=== PATIENT | female | born 2000 | race Caucasian/White ===

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

== ENCOUNTER 2019-05-30 16:36 | Emergency (ER) | payer OTHER ==
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
[2019-05-30 16:48] VITALS: BMI 29.0
[2019-05-30] MEDS ORDERED: METHOCARBAMOL 500 MG TABLET PO ONE (17:27)
[2019-05-30] MEDS ORDERED: NAPROXEN 500 MG TABLET (FP) PO ONE (17:27)
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
[2019-05-30] MEDS ORDERED: NAPROXEN 500 MG TABLET (FP) ONE (17:36)
[2019-05-30] MEDS ORDERED: METHOCARBAMOL 500 MG TABLET ONE (17:37)
[2019-05-30 19:54] VITALS: BP 123/64; PULSE 82; TEMP 98.9
== END 2019-05-30 19:54 | disposition home or self-care (01) ==
LOC: JERFT 16:36
DX: O99.89 Other specified diseases and conditions complicating pregnancy, childbirth and the puerperium (principal); S30.1XXA Contusion of abdominal wall, initial encounter; S30.811A Abrasion of abdominal wall, initial encounter; M25.551 Pain in right hip; M79.651 Pain in right thigh; M25.572 Pain in left ankle and joints of left foot; V47.6XXA Car passenger injured in collision with fixed or stationary object in traffic accident, initial encounter; Y92.414 Local residential or business street as the place of occurrence of the external cause; Y93.89 Activity, other specified; Y99.8 Other external cause status; Z3A.01 Less than 8 weeks gestation of pregnancy
CPT/HCPCS: 36415; 76817-TC; 84702; 84703; 86850; 86900; 86901; 99282-25

== ENCOUNTER 2020-01-09 23:00 | Inpatient (IN) | payer OTHER ==
[2020-01-09] MEDS ORDERED: BUTORPHANOL TARTRATE 1 MG/ML VIAL IVPUSH ONE (23:43)
[2020-01-09] MEDS ORDERED: PROMETHAZINE HCL 25 MG/1 ML VIAL IVPUSH ONE (23:43)
[2020-01-09] MEDS ORDERED: DEXTROSE 5%-LACTATED RINGERS 1,000 ML IV SCH (23:45)
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
[2020-01-09] MEDS ORDERED: BUTORPHANOL TARTRATE 1 MG/ML VIAL ONE ×2 (23:57)
[2020-01-09] MEDS ORDERED: PROMETHAZINE HCL 25 MG/1 ML VIAL ONE (23:57)
[2020-01-10 00:05] LABS: BASO % 0.2 % (0-2.0); HEMATOCRIT 38.6 % (32.4-45.2); HEMOGLOBIN 13.2 GM/dL (10.7-15.3); LYMPH % 8.3 % (8-40); MCH 29.6 pg (25.7-33.7); MCHC 34.2 g/dl (32.0-36.0); MEAN CELL VOLUME 86.7 fl (80-96); MEAN PLT VOLUME 10.1 fl (7.5-11.1); MONO % 6.7 % (3.8-10.2); NEUT % 84.8 % (42.8-82.8); PLATELET COUNT 175 K/MM3 (134-434); RBC 4.45 M/mm3 (3.60-5.2); RDW 13.1 % (11.6-15.6); WHITE BLOOD COUNT 19.5 K/mm3 (4.0-10.0)
--- NOTE | 2020-01-10 00:06 | PN ---
Progress Note (short form) - Note Progress Note: cx 5 cm 80 vx -1, fhr cat 1, scalp electrode applied ,moving unable to monitor fh wants pain meds, option discussed Problem List - Problems (1) with 39 completed weeks gestation Code(s): Z3A.39 - 39 WEEKS GESTATION OF (2) Labor established Code(s): [id number] -
[2020-01-10 00:13] LABS: INR 0.95 (0.83-1.09); PROTHROMBIN TIME (PATIENT) 11.2 SEC (9.7-13.0)
[2020-01-10 00:16] LABS: ACTIVATED PTT 26.9 SECONDS (25.2-36.5)
[2020-01-10 00:29] LABS: BLOOD UREA NITROGEN 7.1 mg/dL (7-18); CALCIUM 8.7 mg/dL (8.5-10.1); CREATININE 0.6 mg/dL (0.55-1.3); POTASSIUM 4.1 mmol/L (3.5-5.1)
[2020-01-10 00:53] VITALS: BMI 40.6
[2020-01-10] MEDS ORDERED: OXYTOCIN 20 UNITS in 0.9% NS 20 UNIT/1,000 ML INFUS.BAG IV ONE (01:04)
[2020-01-10] MEDS ORDERED: morphine SULFATE/PF 0.5 MG/ML (2cc Syringe - QUVA) ONE (01:05)
[2020-01-10] MEDS ORDERED: ePHEDrine SULFATE 50 MG/1 ML AMPULE ONE (01:05)
--- NOTE | 2020-01-10 01:06 | PN ---
Progress Note (short form) - Note Progress Note: cx 5 cm 80 vx -1 fhr cardiac arrhythmia, can not access well being , advised c/s Problem List - Problems (1) with 39 completed weeks gestation Code(s): Z3A.39 - 39 WEEKS GESTATION OF (2) Labor established Code(s): [id number] -
[2020-01-10] MEDS ORDERED: ceFAZolin SODIUM 1 GM VIAL ONE (01:17)
[2020-01-10] MEDS ORDERED: MIDAZOLAM HCL 2 MG/2 ML SINGLE DOSE VIAL ONE (01:57)
[2020-01-10] MEDS ORDERED: diphenhydrAMINE HCL 25 MG CAPSULE (FP) PO PRN (02:31)
[2020-01-10] MEDS ORDERED: WITCH HAZEL 50% (TUCKS) 40 PAD/JAR PAD TP PRN (02:31)
[2020-01-10] MEDS ORDERED: oxyCODONE HCL 5 MG TABLET PO PRN ×2 (02:31)
[2020-01-10] MEDS ORDERED: IBUPROFEN 800 MG/8 ML IJ IVPB PRN (02:31)
[2020-01-10] MEDS ORDERED: METHYLERGONOVINE MALEATE 0.2 MG/1 ML AMP IM PRN (02:31)
[2020-01-10] MEDS ORDERED: BENZOCAINE 28 GM HEMORRHOIDAL OINTMENT PR PRN (02:31)
[2020-01-10] MEDS ORDERED: BENZOCAINE 20% 57 GM BOTTLE TP PRN (02:31)
--- NOTE | 2020-01-10 02:38 | OP ---
Operative Note - Note: Operative Date: 01/10/20 Pre-Operative Diagnosis: non reassuring FHR, heart arrythemia Operation: primary lst c/s Findings: live baby boy 9/9. op. clear fluid Surgeon: Nader Perrin Crm Analyst: Elliot Castro Anesthesia: Spinal Specimens Removed: placenta Estimated Blood Loss (mls): 700 Drains & Tubes with Location: [facility] Blood Volume Replaced (mls): 0 Operative Report Dictated: Yes
[2020-01-10] MEDS ORDERED: OXYTOCIN 20 UNITS in 0.9% NS 20 UNIT/1,000 ML INFUS.BAG IV SCH (02:45)
[2020-01-10] MEDS ORDERED: ONDANSETRON 4 MG/2 ML VIAL IVPUSH PRN (02:56)
[2020-01-10 05:30] LABS: CORD BASE EXCESS -4.7 mmol/L (0-2); CORD HCO3 22.3 mmHg (20-29); CORD PCO2 47.8 mmHg (30-78); CORD pH 7.286 (7.14-7.44)
[2020-01-10 05:33] LABS: CORD BASE EXCESS -4.7 mmol/L (0-2); CORD HCO3 23.7 mmHg (20-29); CORD PCO2 58.3 mmHg (30-78); CORD pH 7.227 (7.14-7.44)
[2020-01-10] MEDS: CEFAZOLIN 1 GM/D5W 1 GM/50 ML BAG IVPB SCH ×2 (09:49→17:33)
[2020-01-10] MEDS: DEXTROSE 5%-LACTATED RINGERS 1,000 ML IV SCH (09:54)
--- NOTE | 2020-01-10 19:51 | OP ---
DATE OF OPERATION: 01/10/2020 PREOPERATIVE DIAGNOSIS: 40 weeks labor, nonreassuring heart rate, arrhythmia. POSTOPERATIVE DIAGNOSIS: 40 weeks labor, nonreassuring heart rate, arrhythmia. PROCEDURE: Primary low segment transverse section. SURGEON: Ana Luisa Parham MD. CYLINDER BLOCK HOLE RELINER: HUBERT Mendez. ANESTHESIA: Spinal. ANESTHESIOLOGIST: Shaista Ly DO. ESTIMATED BLOOD LOSS: 700 mL. OPERATION: Patient was taken to operating room with adequate spinal anesthesia. Abdomen and perineum were prepped and draped. Pfannenstiel abdominal skin incision was made. Abdominal wall was cut layer by layer until the peritoneum was exposed and incised. Upon entering the abdominal cavity, the lower uterine segment was identified, and uterovesical fold of the peritoneum was established. The bladder was pushed down. A low transverse uterine incision was made. The incision extended laterally with bandage scissors. Amniotic sac was entered. Clear fluid. Head delivered. for occiput posterior position. Nasopharynx was suctioned. A live baby was delivered without any difficulty. Placenta was delivered manually. Uterine cavity was cleared of all remaining tissue. Uterine incision was closed in 2 layers, the 1st layer with 0 Biosyn continuous suture, the 2nd layer with 0 Biosyn imbricating the 1st layer. Bladder flap was closed with 0 Biosyn continuous suture. Both tubes and ovaries were checked and were normal. No active bleeding was seen. All the lap, sponge, and instrument counts were correct. Peritoneum was closed with 0 Biosyn continuous suture. Muscles were brought together interrupted suture with 0 Biosyn. Fascia was closed with 0 Biosyn continuous sutures. Subcutaneous fat interrupted sutures 0 Biosyn, and the skin was closed with carla. The patient tolerated the procedure well and left the OR in good condition. ANA LUISA PARHAM M.D. [id number]
[2020-01-11] MEDS ORDERED: BISACODYL 10 MG SUPP.RECT PR PRN (02:31)
[2020-01-11] MEDS: SIMETHICONE 80 MG TAB.CHEW (FP) PO PRN ×2 (06:09→21:40)
[2020-01-11] MEDS: ACETAMINOPHEN 325 MG TABLET (FP) PO PRN ×2 (06:10→21:39)
[2020-01-11] MEDS: IBUPROFEN 600 MG TABLET (FP) PO PRN ×2 (06:11→21:39)
[2020-01-11 08:24] LABS: BASO % 0.1 % (0-2.0); EOS % 0.1 % (0-4.5); HEMATOCRIT 37.1 % (32.4-45.2); HEMOGLOBIN 12.6 GM/dL (10.7-15.3); LYMPH % 10.3 % (8-40); MCH 29.9 pg (25.7-33.7); MCHC 34.1 g/dl (32.0-36.0); MEAN CELL VOLUME 87.8 fl (80-96); MEAN PLT VOLUME 10.1 fl (7.5-11.1); MONO % 5.1 % (3.8-10.2); NEUT % 84.4 % (42.8-82.8); PLATELET COUNT 196 K/MM3 (134-434); RBC 4.22 M/mm3 (3.60-5.2); RDW 13.6 % (11.6-15.6); WHITE BLOOD COUNT 17.3 K/mm3 (4.0-10.0)
--- NOTE | 2020-01-11 11:16 | PN ---
Post Progress Note - Subjective Subjective: Ambulating, tolerating PO, lochia decreased, paasing flatus, voidng Post Day: 1 Type of Delivery: Primary C/S Vital Signs: Vital Signs Temperature 99.3 F 01/10/20 22:00 Pulse Rate 108 H 01/10/20 22:00 Respiratory Rate 18 01/11/20 00:00 Blood Pressure 124/79 01/10/20 22:00 O2 Sat by Pulse Oximetry (%) 98 01/10/20 03:45 Uterus: Yes: Fundus Firm Incision: Yes: Dressing dry and intact Abdomen/GI: Yes: Abdomen soft Lochia, amount: Moderate Extremities: Yes: Calves non-tender Perineum: Yes: Intact Activity: Ambulating - Labs Labs: CBC WBC 17.3 K/mm3 (4.0-10.0) H 01/11/20 07:15 RBC 4.22 M/mm3 (3.60-5.2) 01/11/20 07:15 Hgb 12.6 GM/dL (10.7-15.3) 01/11/20 07:15 Hct 37.1 % (32.4-45.2) 01/11/20 07:15 MCV 87.8 fl (80-96) 01/11/20 07:15 MCH 29.9 pg (25.7-33.7) 01/11/20 07:15 MCHC 34.1 g/dl (32.0-36.0) 01/11/20 07:15 RDW 13.6 % (11.6-15.6) 01/11/20 07:15 Plt Count 196 K/MM3 (134-434) 01/11/20 07:15 MPV 10.1 fl (7.5-11.1) 01/11/20 07:15 Absolute Neuts (auto) 14.6 K/mm3 (1.5-8.0) H 01/11/20 07:15 Neutrophils % 84.4 % (42.8-82.8) H 01/11/20 07:15 Lymphocytes % 10.3 % (8-40) D 01/11/20 07:15 Monocytes % 5.1 % (3.8-10.2) 01/11/20 07:15 Eosinophils % 0.1 % (0-4.5) D 01/11/20 07:15 Basophils % 0.1 % (0-2.0) 01/11/20 07:15 Nucleated RBC % 0 % (0-0) 01/11/20 07:15 Assessment/Plan POD # 1 in stable condition and pp/postop precautions discussed. Patient expressed desire for circumcision -COntinue pp/post-op care -Anticipate D/C home on POD # 2-3
[2020-01-12] MEDS: DEXTROSE 5%-LACTATED RINGERS 1,000 ML IV SCH (00:27)
[2020-01-12 09:05] VITALS: BP 123/85; PULSE 96; TEMP 98.5
--- NOTE | 2020-01-12 11:00 | DS ---
Physical Examination Vital Signs: Vital Signs Temperature 98.5 F 01/12/20 09:03 Pulse Rate 96 H 01/12/20 09:03 Respiratory Rate 01/12/20 09:03 Blood Pressure 123/85 01/12/20 09:03 O2 Sat by Pulse Oximetry (%) 98 01/10/20 03:45 Findings/Remarks: Ambulating, tolerating PO, passing flatus, lochia decreased, voiding, desiring to go home. PP/post-op precautions discussed. Desires 's circumcision and its risks and complications explained. Informed consent obtained and all questions answered. Constitutional: Yes: Well Nourished, No Distress HENT: Yes: Atraumatic Neck: Yes: Supple Cardiovascular: Yes: Regular Rate and Rhythm Respiratory: Yes: Regular Gastrointestinal: Yes: Normal Bowel Sounds, Soft ...Rectal Exam: Yes: Other Renal/: Yes: Other Breast(s): Yes: Other Musculoskeletal: Yes: Other Extremities: Yes: Other Edema: Yes Edema: LLE: Trace, RLE: Trace Integumentary: Yes: WNL Wound/Incision: Yes: Clean/Dry, Well Approximated, Carla Intact Neurological: Yes: WNL, Alert, Oriented ...Motor Strength: WNL Psychiatric: Yes: Alert, Oriented Labs: CBC, BMP 01/11/20 07:15 01/09/20 23:30 Discharge Summary Problems reviewed: Yes Reason For Visit: LABOR Current Active Problems Labor established (Acute) with 39 completed weeks gestation (Acute) Procedures: Principal: [facility] Hospital Course: uncomplicated recovery Plan of Treatment: follow up within a week for incision check Condition: Stable - Instructions Diet, Activity, Other Instructions: Regular Diet as tolerated, avoid strenuous activity. Follow up within a week for incision check and carla removal. Call MD with any questions or concerns Referrals: Nader Perrin MD [Staff Physician] - Disposition: HOME - Home Medications Comprehensive Discharge Medication List: Ambulatory Orders Ferrous Sulfate [Iron] 1 tab PO DAILY 01/09/20 Pnv 29-1 Tablet 1 tab PO DAILY 01/09/20 Acetaminophen [Tylenol] 325 mg PO Q6H PRN #30 capsule MDD 5 01/12/20 Ibuprofen 600 mg PO Q6H PRN #30 tablet 01/12/20 Oxycodone HCl 5 mg PO Q6H PRN 3 Days #12 tablet MDD 5 01/12/20
[2020-01-12] MEDS ORDERED: SENNOSIDES/DOCUSATE COMBO (SENNA PLUS) TABLET (UD) PO PRN (22:00)
--- NOTE | 2020-01-15 17:58 | PATH ---
Surgical Pathology Report Patient Name: JOHANA THAYER Med. Rec. #: [id number] /Age/Gender: 2000 (Age: 19) / F Account: [id number] Location: [facility] OBS/PAYABLE PROCESSOR Taken: 01/10/2020 Received: 01/10/2020 Reported: 01/15/2020 Physicians: aNder Perrin M.D. Specimen(s) Received PLACENTA Clinical History , 40.2 weeks gestation, 1-induced Final Diagnosis PLACENTA: THIRD TRIMESTER PLACENTA WITH INCREASED SYNCYTIAL KNOTS, INTERVILLOUS AND PERIVILLOUS FIBRIN DEPOSITION. TRIVASCULAR CORD WITH ACUTE FUNISITIS. MEMBRANES WITH MARKED ACUTE CHORIOAMNIONITIS. Electronically Signed Lo Aragon M.D. Gross Description The specimen is received fresh labeled placenta and is a 482 gram, 17.0 x 17.0 x 3.0 cm. placenta with attached membranes and umbilical cord. The attached membranes are dykes, translucent with focal opacities and insert marginally. The umbilical cord measures 20 cm. in length and averages 1.3 cm. in diameter. The cord inserts centrally. No true knots or strictures are identified. Cut surface of the umbilical cord reveals 3 vessels. The surface is henderson-blue with minimal fibrin deposition and appropriate caliber vessels. The maternal surface is red-brown with focal defects. Sectioning reveals red-brown, spongy parenchyma. No lesions are identified. Radon Inspector sections are submitted in three cassettes as follows: 1- membrane rolls and umbilical cord; 2-3- full thickness sections of placenta. /01/13/[address] [facility]
== END 2020-01-12 13:20 | disposition home or self-care (01) | DRG 540 ==
LOC: JLDR 23:00 → J3W 01-10 05:37
PROVIDERS: ADMIT Obstetrics & Gynecology; ATTEND Obstetrics & Gynecology
PROC: 10D00Z1 Extraction of Products of Conception, Low, Open Approach (ICD-10-PCS; principal; 2020-01-10)
DX: O36.8330 Maternal care for abnormalities of the fetal heart rate or rhythm, third trimester, not applicable or unspecified (principal); Z3A.40 40 weeks gestation of pregnancy; Z37.0 Single live birth
CPT/HCPCS: 36415; 36600; 80048; 82803; 85025; 85610; 85730; 86780; 86850; 86900; 86901; 86922; 88307-TC; U0003

== ENCOUNTER 2020-09-25 17:26 | Emergency (ER) | payer OTHER ==
[2020-09-25 17:38] VITALS: BP 122/76; PULSE 88; TEMP 98; BMI 35.2
== END 2020-09-25 18:32 | disposition home or self-care (01) ==
LOC: JER 17:26
DX: J06.9 Acute upper respiratory infection, unspecified (principal)
CPT/HCPCS: 99284-25; C9803; U0003

== ENCOUNTER 2021-02-25 16:04 | Emergency (ER) | payer OTHER ==
[2021-02-25 16:26] VITALS: BP 120/77; PULSE 106; TEMP 98.1; BMI 37.1
[2021-02-25 17:34] LABS: BASO % 0.2 % (0-2.0); EOS % 0.3 % (0-4.5); HEMATOCRIT 42.4 % (32.4-45.2); HEMOGLOBIN 14.6 GM/dL (10.7-15.3); LYMPH % 13.7 % (8-40); MCH 28.4 pg (25.7-33.7); MCHC 34.6 g/dl (32.0-36.0); MEAN CELL VOLUME 82.3 fl (80-96); MEAN PLT VOLUME 8.2 fl (7.5-11.1); MONO % 5.2 % (3.8-10.2); NEUT % 80.6 % (42.8-82.8); PLATELET COUNT 251 10^3/uL (134-434); RBC 5.15 M/mm3 (3.60-5.2); RDW 12.8 % (11.6-15.6); WHITE BLOOD COUNT 8.6 K/mm3 (4.0-10.0)
[2021-02-25 17:40] LABS: EPI CELLS >36 /uL (0-25.1); HYALINE CASTS 5 /uL (0-3.1); PH,URINE 6.5 (5.0-8.0); URINE APPEARANCE TURBID; URINE BACTERIA 1393 /uL (0-1359); URINE BILIRUBIN NEGATIVE (NEGATIVE); URINE COLOR ORANGE; URINE GLUCOSE (UA) NEGATIVE (NEGATIVE); URINE KETONE NEGATIVE (NEGATIVE); URINE LEUK ESTERASE 1+ (NEGATIVE); URINE NITRITE NEGATIVE (NEGATIVE); URINE PROTEIN 2+ (NEGATIVE); URINE RBC 297 /uL (0-23.9); URINE WBC 206 /uL (0-25.8)
[2021-02-25 17:55] LABS: ALBUMIN 4.2 g/dl (3.4-5.0); BLOOD UREA NITROGEN 12.6 mg/dL (7-18)
[2021-02-25 17:58] LABS: CREATININE 0.6 mg/dL (0.55-1.3)
[2021-02-25 17:59] LABS: BILIRUBIN,TOTAL 0.8 mg/dL (0.2-1); TOT PROT 7.6 g/dl (6.4-8.2)
== END 2021-02-25 18:37 | disposition home or self-care (01) ==
LOC: JER 16:04
DX: N30.01 Acute cystitis with hematuria (principal); N92.0 Excessive and frequent menstruation with regular cycle
CPT/HCPCS: 36415; 80053; 81003; 84703; 85025; 86850; 86900; 86901; 87086; 99283-25

== ENCOUNTER 2021-10-23 19:10 | Emergency (ER) | payer OTHER ==
[2021-10-23 19:20] VITALS: BP 134/68; PULSE 93; BMI 36.3
[2021-10-23 19:47] VITALS: TEMP 99
[2021-10-24 16:07] LABS: SARS-CoV-2 NAA Detected (Not Detected)
== END 2021-10-23 19:47 | disposition home or self-care (01) ==
LOC: JER 19:10
DX: U07.1 COVID-19 (principal)
CPT/HCPCS: 87804; 99283-25; C9803-CS; U0003; U0005

== ENCOUNTER 2022-08-26 19:10 | Emergency (ER) | payer OTHER ==
[2022-08-26 19:27] VITALS: BP 128/79; PULSE 70; RESP 18; TEMP 98.2; BMI 33.0
[2022-08-26] MEDS ORDERED: ACETAMINOPHEN 325 MG TABLET (FP) PO ONE (20:40)
[2022-08-26] MEDS ORDERED: ACETAMINOPHEN 325 MG TABLET (FP) ONE (20:48)
== END 2022-08-26 22:25 | disposition home or self-care (01) ==
LOC: JER 19:10
DX: M25.562 Pain in left knee (principal); M25.572 Pain in left ankle and joints of left foot
CPT/HCPCS: 73502-TC-LT-FY; 73562-TC-LT-FY; 73610-TC-LT-FY; 73630-TC-LT; 99284-25

== ENCOUNTER 2023-06-13 21:51 | Emergency (ER) | payer OTHER ==
[2023-06-13 21:58] VITALS: BP 130/84; PULSE 90; RESP 18; TEMP 98.3; BMI 36.3
[2023-06-13 23:08] LABS: BASO % 0.7 % (0-2.0); EOS % 0.4 % (0-4.5); HEMATOCRIT 37.3 % (32.4-45.2); HEMOGLOBIN 12.6 GM/dL (10.7-15.3); LYMPH % 32.5 % (8-40); MCH 27.6 pg (25.7-33.7); MCHC 33.7 g/dl (32.0-36.0); MEAN CELL VOLUME 81.9 fl (80-96); MEAN PLT VOLUME 8.1 fl (7.5-11.1); MONO % 6.5 % (3.8-10.2); NEUT % 59.9 % (42.8-82.8); PLATELET COUNT 251 10^3/uL (134-434); RBC 4.56 M/mm3 (3.60-5.2); RDW 13.2 % (11.6-15.6); WHITE BLOOD COUNT 10.3 K/mm3 (4.0-10.0)
[2023-06-13 23:12] LABS: EPI CELLS 16 /uL (0-25.1); HYALINE CASTS 0 /uL (0-3.1); PH,URINE 5.5 (5.0-8.0); URINE APPEARANCE CLOUDY; URINE BACTERIA 225 /uL (0-1359); URINE BILIRUBIN NEGATIVE (NEGATIVE); URINE COLOR YELLOW; URINE GLUCOSE (UA) NEGATIVE (NEGATIVE); URINE KETONE NEGATIVE (NEGATIVE); URINE LEUK ESTERASE NEGATIVE (NEGATIVE); URINE NITRITE NEGATIVE (NEGATIVE); URINE PROTEIN TRACE (NEGATIVE); URINE WBC 9 /uL (0-25.8)
[2023-06-13 23:44] LABS: HCG,QUALITATIVE URINE Negative
[2023-06-13 23:54] LABS: YEAST NONE SEEN (NEGATIVE)
== END 2023-06-13 23:59 | disposition home or self-care (01) ==
LOC: JER 21:51
DX: N93.9 Abnormal uterine and vaginal bleeding, unspecified (principal)
CPT/HCPCS: 36415; 81003; 84703; 85025; 86850; 86900; 86901; 99283-25